=== PATIENT | female | born 1985 | race Caucasian/White ===

== ENCOUNTER 2018-07-23 12:24 | Emergency (ER) | payer MEDICAID ==
[2018-07-23] MEDS ORDERED: Clindamycin HCl 150 MG Cap PO ONE (13:09)
--- NOTE | 2018-07-23 13:15 | EDM.PDOC ---
ED HPI GENERAL MEDICAL PROBLEM - General Chief Complaint: ENT Problem Stated Complaint: ABSCESS ON FACE Time Seen by Provider: 07/23/18 12:59 Source of Information: Reports: Patient History Limitations: Reports: No Limitations - History of Present Illness INITIAL COMMENTS - FREE TEXT/NARRATIVE: Patient is a 33-year-old female presents ED complaining of right upper gumline tenderness, swelling, and swelling to the right cheek. She states a cap to the right upper molar fell off approximately 2 months ago. Over the past 2 weeks she 's been developing pain to the right tooth. Starting this Monday she developed increased swelling to her gumline and also cheek. She was evaluated at the [facility] approximately one week ago and placed on penicillin twice a day for 5 days. Unknown dose. She took the medication as prescribed with no resolution. In addition she was also diagnosed with influenza this past Monday and has been taking Tamiflu. She has been eating and drinking okay. She has been taking Tylenol with minimal relief. She denies being . Denies any sore throat, difficulty swallowing, drooling, neck pain, change in voice, fevers , or any additional complaints. 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 #2 tooth with severe decay and lateral gumline swelling. Patient has periapical swelling. ) ED EXAM, ENT - Physical Exam Exam: See Below Exam Limited By: No Limitations General Appearance: Alert, WD/WN, No Apparent Distress Eye Exam: Bilateral Eye: PERRL Ears: Hearing Grossly Normal Nose: Normal Inspection Mouth/Throat: Dental Abcess, Dental Pain, Dental Tenderness, Dental Trauma, Other (Severe dental decay to the #2 tooth. Periapical abscess noted to the lateral gumline. Pain with palpation. Swelling and tenderness to the right cheek.). No: Drooling, Dry Mucous Membrane, Muffled Voice, Pharyngeal Erythema , Throat Pain, Throat Swelling, Tonsillar Erythema, Tonsillar Exudates, Tonsillar Swelling, Trismus, Uvular Deviation Head: Atraumatic, Normocephalic Neck: Normal Inspection, Supple, Non-Tender, Full Range of Motion. No: Lymphadenopathy (L), Lymphadenopathy (R) Respiratory/Chest: No Respiratory Distress, No Accessory Muscle Use Cardiovascular: Normal Peripheral Pulses, Regular Rate, Rhythm Neurological: Alert, Oriented, CN II-XII Intact, Normal Cognition, No Motor/ Sensory Deficits Psychiatric: Normal Affect, Normal Mood Skin: Warm, Dry, Intact, Normal Color, No Rash Course - Vital Signs Last Recorded V/S: Last Vital Signs Temp 97.2 F 07/23/18 12:32 Pulse 94 07/23/18 12:32 Resp 18 07/23/18 12:32 BP 145/80 H 07/23/18 12:32 Pulse Ox 98 07/23/18 12:32 - Orders/Labs/Meds Meds: Medications Discontinued Medications Generic Name Dose Route Start Last Admin Trade Name Darlene PRN Reason Stop Dose Admin Clindamycin HCl 300 mg 07/23/18 13:09 07/23/18 13:14 Cleocin PO 07/23/18 13:10 300 mg ONETIME ONE Administration - Re-Assessments/Exams Free Text/Narrative Re-Assessment/Exam: Patient has severe dental decay with periapical abscess to #2 tooth. I have offered to drain the abscess to which the patient has refused. Ordered clindamycin 300 mg by mouth. Prescription has been provided on discharge. She has an appointment with a dentist in [place] to be evaluated in 1 month. Return precautions discussed with the patient and . She had no further questions or concerns and agreed with plan. Departure - Departure Time of Disposition: 13:14 Disposition: Home, Self-Care 01 Condition: Good Clinical Impression: Periapical abscess with facial involvement - Discharge Information Prescriptions: Acetaminophen/HYDROcodone [Horseheads 325-5 MG] 1 tab PO Q6H PRN #8 tablet PRN Reason: Pain (Severe 7-10) Clindamycin HCl 300 mg PO TID #30 capsule Instructions: Skin Abscess, [id number], Dental Abscess Referrals: PCP,None [Primary Care Provider] - Forms: ED Department Discharge Additional Instructions: Keep appointment with dentist as scheduled for definitive treatment. Take the clindamycin as prescribed. Suggest taking a OTC probiotic for the next month. Utilize ibuprofen and Tylenol in alternating fashion for pain. For severe pain take Horseheads one tab every 6 hours. Do not take Tylenol and Horseheads together. Do not drive while taking the Horseheads. May utilize other [id number] topical pain medications as needed. Apply warm compresses to the cheek as needed. Return to ED if you develop any new or worsening symptoms.
== END 2018-07-23 13:27 | disposition home or self-care (01) ==
LOC: JD.ED 12:24
DX: K04.7 Periapical abscess without sinus (principal)
CPT/HCPCS: 99282; A9270; 99283

== ENCOUNTER 2021-11-28 06:38 | Emergency (ER) | payer MEDICAID ==
[2021-11-28] MEDS ORDERED: Ondansetron 4 MG Tab.DIS PO ONE (07:26)
== END 2021-11-28 08:50 | disposition home or self-care (01) ==
LOC: JD.ED 06:38
DX: K52.9 Noninfective gastroenteritis and colitis, unspecified (principal); Z91.048 Other nonmedicinal substance allergy status
CPT/HCPCS: 99283; A9270

== ENCOUNTER 2022-10-17 16:07 | Emergency (ER) | payer SELFPAY | END 2022-10-17 18:06 | LOC: JD.ED 16:07 | DX: Z53.21 Procedure and treatment not carried out due to patient leaving prior to being seen by health care provider (principal) ==

== ENCOUNTER 2024-10-09 07:45 | Emergency (ER) | payer MEDICAID | END 2024-10-09 09:18 | disposition home or self-care (01) | LOC: JD.ED 07:45 | DX: G56.02 Carpal tunnel syndrome, left upper limb (principal); Z91.09 Other allergy status, other than to drugs and biological substances; Z90.49 Acquired absence of other specified parts of digestive tract | CPT/HCPCS: 99283 ==

== ENCOUNTER 2025-02-05 08:01 | Emergency (ER) | payer MEDICAID ==
[2025-02-05] MEDS: Ketorolac 15 MG/ML SDV IVPUSH ONE (09:59)
[2025-02-05] MEDS: Sodium Chloride 0.9% 10 ML Syringe FLUSH PRN (10:01)
[2025-02-05 10:10] LABS: BASOPHILS ABSOLUTE AUTO 0.1 K/mm3 (0.0-0.2); BASOPHILS PERCENT AUTO 0.8 % (0.0-1.0); EOSINOPHILS ABSOLUTE AUTO 0.1 K/mm3 (0.0-0.4); EOSINOPHILS PERCENT AUTO 1.0 % (0.0-6.0); IMMATURE GRAN ABSOLUTE AUTO 0.02 K/mm3 (0.00-0.05); IMMATURE GRAN PERCENT AUTO 0.3 % (0.0-0.4); LYMPHOCYTES ABSOLUTE AUTO 1.9 K/mm3 (1.0-4.8); LYMPHOCYTES PERCENT AUTO 23.7 % (24.0-44.0); MEAN PLATELET VOLUME 9.6 fl (9.4-12.3); MONOCYTES ABSOLUTE AUTO 0.4 K/mm3 (0.0-0.8); MONOCYTES PERCENT AUTO 4.9 % (0.0-8.0); NEUTROPHILS ABSOLUTE AUTO 5.5 K/mm3 (1.8-7.7); NEUTROPHILS PERCENT AUTO 69.3 % (41.0-71.0); NRBC ABSOLUTE 0.00 (0.00-0.02); NRBC PERCENT 0.0 % (0.0-0.2); PLATELET COUNT,PLT 246 K/mm3 (150-400); RED BLOOD CELL COUNT 4.83 M/mm3 (4.10-5.30); WHITE BLOOD CELL COUNT,WBC 7.92 K/mm3 (3.9-11.3)
[2025-02-05 10:28] LABS: A/G RATIO 1.0 (1-2); ALANINE AMINOTRANSFERASE,ALT 31.0 U/L (14-59); ASPARTATE AMNIOTRANSFERASE,AST 17.0 U/L (15-37); BILIRUBIN TOTAL 0.3 mg/dL (0.2-1.0); BLOOD UREA NITROGEN,BUN 13.0 mg/dL (7-18); CARBON DIOXIDE,CO2 27.0 mEq/L (21-32); CHLORIDE,CL 104.0 mEq/L (98-107); CREATININE 0.9 mg/dL (0.55-1.02); EST CRCL DRUG DOSING (CG) 76.26 mL/min; ESTIMATED GFR 84.0 mL/min (>60); GLUCOSE RANDOM 106.0 mg/dL (70-99); POTASSIUM,K 4.1 mEq/L (3.5-5.1); PROTEIN TOTAL,TP 7.3 g/dl (6.4-8.2); SODIUM,NA 140.0 mEq/L (136-145)
== END 2025-02-05 12:36 | disposition home or self-care (01) ==
LOC: JD.ED 08:01
DX: M54.50 Low back pain, unspecified (principal); Z79.899 Other long term (current) drug therapy; Z91.048 Other nonmedicinal substance allergy status
CPT/HCPCS: 36415; 72131; 80053; 84703; 85025; 96361; 96374; 99284; J1885; J7030